=== PATIENT | female | born 1985 | race Hispanic/Latino ===

== ENCOUNTER 2017-03-03 12:46 | Emergency (ER) | payer MEDICAID ==
[2017-03-03 14:55] LABS: Basophils % (Auto) 0.6 % (0.0-1.8); Eosinophils % (Auto) 1.2 % (0.0-4.3); Hematocrit 37.8 % (30.3-42.9); Hemoglobin 12.3 gm/dl (10.1-14.3); Mean Corpuscular HGB Conc 33 % (30-34); Mean Corpuscular Hemoglobin 27 pg (28-32); Mean Corpuscular Volume 84 fl (79-97); Platelet Count 227 K/mm3 (140-440); Red Blood Count 4.52 M/mm3 (3.65-5.03); Red Cell Distribution Width 14.8 % (13.2-15.2); White Blood Count 10.9 K/mm3 (4.5-11.0)
[2017-03-03 15:14] LABS: Alanine Aminotransferase 16 units/L (7-56); Albumin 3.6 g/dL (3.9-5); Albumin/Globulin Ratio 1.2 %; Alkaline Phosphatase 78 units/L (35-129); Anion Gap 19 mmol/L; Bilirubin,Total < 0.20 mg/dL (0.1-1.2); Blood Urea Nitrogen 6 mg/dL (7-17); Calcium 9.2 mg/dL (8.4-10.2); Carbon Dioxide 22 mmol/L (22-30); Glucose 103 mg/dL (65-100); Lipase 16 units/L (13-60); Potassium 3.8 mmol/L (3.6-5.0); Sodium 139 mmol/L (137-145); Total Protein 6.5 g/dL (6.3-8.2)
[2017-03-03 16:14] LABS: Bacteria,Urine 4+ /HPF (Negative); Bilirubin,Urine NEG (Negative); Blood,Urine SM (Negative); Ketones,Urine NEG (Negative); Leukocyte Esterase,Urine TR (Negative); Mucus,Urine 3+ /HPF; Nitrite,Urine POS (Negative); Urobilinogen,Urine < 2.0 mg/dL (<2.0)
--- NOTE | 2017-03-03 17:29 | Emergency Department Report ---
Entered by TAY LARIOS, acting as scribe for ELVIA JULIEN PA. Chief Complaint: Abdominal Pain Stated Complaint: 18 WKS , RT SIDED PAIN Time Seen by Provider: 03/03/17 15:42 - HPI History of Present Illness: 31 y/o female presents c/o right sided abd pain that started this morning, worsened 4 hours ago and radiates to the back. Pt notes mild vaginal discharge but denies fever, chills or vaginal bleeding. Pt notes this is her 3rd . - ROS Review of Systems: as noted in HPI - Exam Vital Signs: Vital Signs 03/03/17 14:25 Temperature 98.5 F Pulse Rate 80 Respiratory 16 Rate Blood Pressure 136/82 O2 Sat by Pulse 100 Oximetry Physical Exam: General: 31-year-old female in no acute distress. Well-developed, well- nourished. CV: Regular rate and rhythm. No murmurs rubs or gallops. Lungs: Clear to auscultation bilaterally. Abdomen: No tenderness to palpation. No guarding or rebound tenderness. Normal bowel sounds. Mini Neuro: Alert and oriented 3. MSE screening note: Focused history and physical exam performed. Due to findings the following was ordered: ED Medical Decision Making - Lab Data Result diagrams: 03/03/17 14:37 03/03/17 14:37 ED Disposition for MSE Condition: Stable Instructions: Abdominal Pain (ED) Referrals: PRIMARY CARE,MD [Primary Care Provider] - 3-5 Days This documentation as recorded by the scribe,TAY LARIOS,accurately reflects the service I personally performed and the decisions made by me,ELVIA JULIEN PA.
[2017-03-03 18:52] VITALS: BP 121/58
[2017-03-03] MEDS ORDERED: MACROBID PO ONE (19:00)
[2017-03-03] MEDS ORDERED: NORCO 5/325 PO ONE (19:00)
[2017-03-03] MEDS ORDERED: PHENERGAN PO ONE (19:00)
--- NOTE | 2017-03-03 19:03 | Ultrasound Report ---
FINAL REPORT EXAM: US OB \T\gt; = 14 WEEKS FETUS HISTORY: vag bleeding COMPARISONS: None. FINDINGS: Transabdominal grayscale, color Doppler and M-mode ultrasound evaluation of the pelvis/uterus Single living intrauterine gestation with recorded cardiac activity of 151 beats per minute. Subjectively normal amniotic fluid volume. Cervix appears closed and measures 3.4 cm in length. Anterior placenta without focal abnormality. Biparietal diameter is 4.1 cm. Head circumference is 15.4 cm. Abdominal circumference is 12.4 cm. Femoral length is 2.5 cm. Composite of measurements results in estimated gestational age 18 weeks 1 day corresponding to estimated delivery date of 08/03/2017, which is concordant with reported prior established dating. IMPRESSION: Single living intrauterine without evidence of acute complication and concordant size and dates as detailed above. The cervix appears closed. In the absence of additional symptoms requiring short interval repeat imaging, follow-up detailed anatomy scan at 20 weeks gestational age is recommended.
[2017-03-03 19:04] LABS: Blood Urea Nitrogen 6 mg/dL (7-17); Calcium 8.7 mg/dL (8.4-10.2); Carbon Dioxide 22 mmol/L (22-30); Glucose 84 mg/dL (65-100)
[2017-03-03 19:05] LABS: Anion Gap 19 mmol/L; Chloride 100.1 mmol/L (98-107); Potassium 4.2 mmol/L (3.6-5.0); Sodium 137 mmol/L (137-145)
--- NOTE | 2017-03-03 19:05 | Emergency Department Report ---
ED Female HPI - General Chief complaint: Abdominal Pain Stated complaint: 18 WKS , RT SIDED PAIN Time Seen by Provider: 03/03/17 17:24 Source: patient Mode of arrival: Ambulatory Limitations: No Limitations - History of Present Illness Initial comments: 31-year-old female presents with her third for right-sided abdominal pain and back pain. Patient is 18 weeks . For the past 3 days patient has had 10/10 right-sided lower back pain, dysuria, urinary frequency and hesitancy. Pain is constant and worse with palpation and movement. Not alleviated by Tylenol. Intermittent nausea vomiting reported. No reports of fever, hematuria, or vaginal bleeding. - Related Data Previous Rx's Medication Instructions Recorded Last Taken Type HYDROcodone/APAP 5-325 [[place] 1 each PO Q6HR PRN #15 tablet 03/03/17 Unknown Rx 5/325] Nitrofurantoin Blair/M-Cryst 100 mg PO Q12HR #14 capsule 03/03/17 Unknown Rx [Macrobid CAP] Promethazine [Phenergan TAB] 25 mg PO Q6HR PRN #20 tab 03/03/17 Unknown Rx Allergies Allergy/AdvReac Type Severity Reaction Status Date / Time No Known Allergies Allergy Unverified 03/03/17 14:25 ED Review of Systems ROS: Stated complaint: 18 WKS , RT SIDED PAIN Other details as noted in HPI Comment: All other systems reviewed and negative Other: Constitutional: No fevers chills Eyes: No eye pain visual changes ENT: No ear pain or throat pain Neck: Denies pain Respiratory: Denies cough wheezing shortness of breath Cardiovascular: Denies chest pain, palpitations, syncope GI: As per Hpi : Denies dysuria Musculoskeletal: as per hpi Skin: Denies rash, lesions, erythema Neurologic: Denies headache, numbness, weakness Psychiatric: Denies suicidal ideation, hallucinations ED Past Medical Hx - Past Medical History Previous Medical History?: No - Surgical History Past Surgical History?: Yes Hx Cholecystectomy: Yes Additional Surgical History: x2; Tonsils as child; cyst removed from ovaries bilaterally - Social History Smoking Status: Current Every Day Smoker - Medications Home Medications: Home Medications Medication Instructions Recorded Confirmed Last Taken Type HYDROcodone/APAP 5-325 [[place] 1 each PO Q6HR PRN #15 tablet 03/03/17 Unknown Rx 5/325] Nitrofurantoin Blair/M-Cryst 100 mg PO Q12HR #14 capsule 03/03/17 Unknown Rx [Macrobid CAP] Promethazine [Phenergan TAB] 25 mg PO Q6HR PRN #20 tab 03/03/17 Unknown Rx ED Physical Exam - General Limitations: No Limitations - Other Other exam information: General: No limitations, patient is alert in no acute distress Head exam: Atraumatic, normocephalic Eyes exam: Normal appearance ENT: Moist mucous membrane, normal oropharynx Neck exam: Normal inspection, full range of motion Respiratory exam: Clear to auscultation bilateral, no wheezes, rales, crackles Cardiovascular: Normal rate and rhythm, normal heart sounds Abdomen: Soft, nondistended, and nontender, with normal bowel sounds, no rebound, or guarding. Gravid abdomen Extremity: Full range of motion normal inspection no deformity Back: Normal Inspection, full range of motion, right flank tenderness Neurologic: Alert, oriented x3, cranial nerves intact, no motor or sensory deficit Psychiatric: normal affect, normal mood Skin: Warm, dry, intact ED Course Vital Signs 03/03/17 03/03/17 03/03/17 14:25 18:51 18:53 Temperature 98.5 F 97.9 F Pulse Rate 80 78 Respiratory 16 18 Rate Blood Pressure 136/82 Blood Pressure 121/58 [Left] O2 Sat by Pulse 100 99 100 Oximetry - Reevaluation(s) Reevaluation #1: 03/03/17 19:54 pt has relief in symptoms ED Medical Decision Making - Lab Data Result diagrams: 03/03/17 14:37 03/03/17 18:31 Lab Results 03/03/17 03/03/17 03/03/17 Range/Units 14:37 14:37 14:37 WBC 10.9 (4.5-11.0) K/mm3 RBC 4.52 (3.65-5.03) M/mm3 Hgb 12.3 (10.1-14.3) gm/dl Hct 37.8 (30.3-42.9) % MCV 84 (79-97) fl MCH 27 L (28-32) pg MCHC 33 (30-34) % RDW 14.8 (13.2-15.2) % Plt Count 227 (140-440) K/mm3 Lymph % (Auto) 14.8 (13.4-35.0) % Blair % (Auto) 4.2 (0.0-7.3) % Eos % (Auto) 1.2 (0.0-4.3) % Baso % (Auto) 0.6 (0.0-1.8) % Lymph # 1.6 (1.2-5.4) K/mm3 Blair # 0.5 (0.0-0.8) K/mm3 Eos # 0.1 (0.0-0.4) K/mm3 Baso # 0.1 (0.0-0.1) K/mm3 Seg Neutrophils % 79.2 H (40.0-70.0) % Seg Neutrophils # 8.6 H (1.8-7.7) K/mm3 Sodium 139 (137-145) mmol/L Potassium 3.8 (3.6-5.0) mmol/L Chloride 102.0 (98-107) mmol/L Carbon Dioxide 22 (22-30) mmol/L Anion Gap 19 mmol/L BUN 6 L (7-17) mg/dL Creatinine 0.4 L (0.7-1.2) mg/dL Estimated GFR > 60 ml/min BUN/Creatinine Ratio 15.00 % Glucose 103 H (65-100) mg/dL Calcium 9.2 (8.4-10.2) mg/dL Total Bilirubin < 0.20 (0.1-1.2) mg/dL AST 18 (5-40) units/L ALT 16 (7-56) units/L Alkaline Phosphatase 78 (35-129) units/L Total Protein 6.5 (6.3-8.2) g/dL Albumin 3.6 L (3.9-5) g/dL Albumin/Globulin Ratio 1.2 % Lipase 16 (13-60) units/L HCG, Qual (Negative) HCG, Quant 82072 H (0-4) mIU/mL Urine Color (Yellow) Urine Turbidity (Clear) Urine pH (5.0-7.0) Ur Specific Premier (1.003-1.030) Urine Protein (Negative) mg/dL Urine Glucose (UA) (Negative) mg/dL Urine Ketones (Negative) mg/dL Urine Blood (Negative) Urine Nitrite (Negative) Urine Bilirubin (Negative) Urine Urobilinogen (<2.0) mg/dL Ur Leukocyte Esterase (Negative) Urine WBC (Auto) (0.0-6.0) /HPF Urine RBC (Auto) (0.0-6.0) /HPF U Epithel Cells (Auto) (0-13.0) /HPF Urine Bacteria (Auto) (Negative) /HPF Urine Mucus /HPF 03/03/17 03/03/17 03/03/17 Range/Units 15:52 18:31 18:31 WBC (4.5-11.0) K/mm3 RBC (3.65-5.03) M/mm3 Hgb (10.1-14.3) gm/dl Hct (30.3-42.9) % MCV (79-97) fl MCH (28-32) pg MCHC (30-34) % RDW (13.2-15.2) % Plt Count (140-440) K/mm3 Lymph % (Auto) (13.4-35.0) % Blair % (Auto) (0.0-7.3) % Eos % (Auto) (0.0-4.3) % Baso % (Auto) (0.0-1.8) % Lymph # (1.2-5.4) K/mm3 Blair # (0.0-0.8) K/mm3 Eos # (0.0-0.4) K/mm3 Baso # (0.0-0.1) K/mm3 Seg Neutrophils % (40.0-70.0) % Seg Neutrophils # (1.8-7.7) K/mm3 Sodium 137 (137-145) mmol/L Potassium 4.2 (3.6-5.0) mmol/L Chloride 100.1 (98-107) mmol/L Carbon Dioxide 22 (22-30) mmol/L Anion Gap 19 mmol/L BUN 6 L (7-17) mg/dL Creatinine 0.4 L (0.7-1.2) mg/dL Estimated GFR > 60 ml/min BUN/Creatinine Ratio 15.00 % Glucose 84 (65-100) mg/dL Calcium 8.7 (8.4-10.2) mg/dL Total Bilirubin (0.1-1.2) mg/dL AST (5-40) units/L ALT (7-56) units/L Alkaline Phosphatase (35-129) units/L Total Protein (6.3-8.2) g/dL Albumin (3.9-5) g/dL Albumin/Globulin Ratio % Lipase (13-60) units/L HCG, Qual Positive (Negative) HCG, Quant (0-4) mIU/mL Urine Color Trista (Yellow) Urine Turbidity Cloudy (Clear) Urine pH 6.0 (5.0-7.0) Ur Specific Premier 1.020 (1.003-1.030) Urine Protein 30 mg/dl (Negative) mg/dL Urine Glucose (UA) Neg (Negative) mg/dL Urine Ketones Neg (Negative) mg/dL Urine Blood Sm (Negative) Urine Nitrite Pos (Negative) Urine Bilirubin Neg (Negative) Urine Urobilinogen < 2.0 (<2.0) mg/dL Ur Leukocyte Esterase Tr (Negative) Urine WBC (Auto) 26.0 H (0.0-6.0) /HPF Urine RBC (Auto) 8.0 (0.0-6.0) /HPF U Epithel Cells (Auto) 3.0 (0-13.0) /HPF Urine Bacteria (Auto) 4+ (Negative) /HPF Urine Mucus 3+ /HPF - Radiology Data Radiology results: report reviewed (ultrasound: Single living IUP without signs of acute abnl. 18 weeks 1 day heart 151) - Medical Decision Making Patient treated in the ED when [place], Phenergan, and Macrobid. Will be discharged home on the same medications for treatment of UTI. Ultrasound does not reveal any abnormality at this time - Differential Diagnosis renal colic, UTI, miscarriage Critical Care Time: No Critical care attestation.: If time is entered above; I have spent that time in minutes in the direct care of this critically ill patient, excluding procedure time. ED Disposition Clinical Impression: UTI (urinary tract infection), 18 weeks gestation of Disposition: DISCHARGED TO HOME OR SELFCARE Is pt being admited?: No Does the pt Need Aspirin: No Condition: Stable Instructions: Urinary Tract Infection in Women (ED), (ED) Additional Instructions: Take the medication as prescribed. Return if symptoms worsen. Follow-up with your [employer] doctor within 3-5 days Prescriptions: HYDROcodone/APAP 5-325 [[place] 5/325] 1 each PO Q6HR PRN #15 tablet PRN Reason: Pain Nitrofurantoin [place]/M-Cryst [Macrobid CAP] 100 mg PO Q12HR #14 capsule Promethazine [Phenergan TAB] 25 mg PO Q6HR PRN #20 tab PRN Reason: Nausea Referrals: your, office sweeper [Other] - 3-5 Days Time of Disposition: 19:54
== END 2017-03-03 20:00 | disposition home or self-care (01) ==
LOC: ED 12:46
DX: O23.42 Unspecified infection of urinary tract in pregnancy, second trimester (principal); F17.200 Nicotine dependence, unspecified, uncomplicated; Z3A.18 18 weeks gestation of pregnancy
CPT/HCPCS: 36415; 76805; 80048; 80053; 81001; 83690; 84702; 84703; 85025; 87076; 87086; 87186; Q0169